=== PATIENT | male | born 1975 | race Caucasian/White ===

== ENCOUNTER 2017-06-22 13:21 | Emergency (ER) | payer SELFPAY ==
[2017-06-22] MEDS ORDERED: CLINDAMYCIN HCL 150 MG CAPSULE PO ONE (13:50)
[2017-06-22] MEDS ORDERED: OXYCODONE-ACETAMINOPHEN 5-325 MG TABLET PO ONE ×2 (13:50→15:59)
--- NOTE | 2017-06-22 14:18 | RADIOLOGY REPORT (SQ) ---
EXAM DESCRIPTION: HAND LEFT 3 VIEWS COMPLETED DATE/TIME: 06/22/2017 2:07 pm REASON FOR STUDY: injury to 3rd and 4th finger COMPARISON: None. EXAM PARAMETERS: NUMBER OF VIEWS: Three views. TECHNIQUE: AP, lateral and oblique radiographic images acquired of the left hand. LIMITATIONS: None. FINDINGS: MINERALIZATION: Normal. BONES: No acute fracture or dislocation. No worrisome bone lesions. JOINTS: No effusions. SOFT TISSUES: No soft tissue swelling. No foreign body. OTHER: No other significant finding. IMPRESSION: NEGATIVE STUDY OF THE LEFT HAND. NO RADIOGRAPHIC EVIDENCE OF ACUTE INJURY. TECHNICAL DOCUMENTATION: JOB ID: [id number] [employer]- All Rights Reserved
[2017-06-22] MEDS ORDERED: LIDOCAINE 1% INJ-PF (10 MG/ML) 30 ML SDV INJ ONE (15:01)
--- NOTE | 2017-06-22 15:01 | ER Document Report ---
ED Hand/Wrist Injury - General Chief Complaint: Laceration Stated Complaint: FINGER INJURY Time Seen by Provider: 06/22/17 13:39 Mode of Arrival: Ambulatory Information source: Patient Notes: 3-year-old male presents to ED for injury to bilateral hands. 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 Has a small cut to the right index finger and lacerations to the third and fourth left digits. states she tried to get him to come to the emergency room last night and he refused. States his tetanus shot was last 2 years ago. TRAVEL OUTSIDE OF THE [place] 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 Lives with: Family Family History: DM, Hyperlipidemia, Hypertension, Malignancy - Past Medical History Cardiac Medical History: Reports: Hx Hypercholesterolemia, Hx Hypertension Pulmonary Medical History: Reports: None EENT Medical History: Reports: None Neurological Medical History: Reports: None Endocrine Medical History: Reports: Hx Diabetes Mellitus Type 2 - diet controlled Renal/ Medical History: Reports: None Malignancy Medical History: Reports None GI Medical History: Reports: None Musculoskeltal Medical History: Reports Hx Arthritis, Reports Hx Musculoskeletal Deformity, Reports Hx Musculoskeletal Trauma Skin Medical History: Reports None Psychiatric Medical History: Reports: None Traumatic Medical History: Reports: Hx Fractures - Elbow Infectious Medical History: Reports: None Past Surgical History: Reports: Hx Orthopedic Surgery - back bulging disc rods and screws - Immunizations Immunizations up to date: Yes Hx Diphtheria, Pertussis, Tetanus Vaccination: Yes Hx Pneumococcal Vaccination: 02/27/13 Review of Systems - Review of Systems Constitutional: No symptoms reported EENT: No symptoms reported Cardiovascular: No symptoms reported Respiratory: No symptoms reported Gastrointestinal: No symptoms reported Genitourinary: No symptoms reported Male Genitourinary: No symptoms reported Musculoskeletal: Other - Bruising and tenderness to the third and fourth finger on the left hand, and unable to completely straighten the third and fourth finger on the left hand. Skin: Other - Flap lacerations to the third and fourth finger on the left hand Hematologic/Lymphatic: No symptoms reported Neurological/Psychological: No symptoms reported Physical Exam - Vital signs Vitals: Temp Pulse Resp BP Pulse Ox 98.2 F 82 20 126/70 H 95 06/22/17 13:28 06/22/17 13:28 06/22/17 13:28 06/22/17 13:28 06/22/17 13:28 Interpretation: Normal - General General appearance: Appears well, Alert - HEENT Head: Normocephalic, Atraumatic Eyes: Normal Pupils: PERRL - Respiratory Respiratory status: No respiratory distress Chest status: Nontender Breath sounds: Normal Chest palpation: Normal - Cardiovascular Rhythm: Regular Heart sounds: Normal auscultation Murmur: No - Abdominal Inspection: Normal Distension: No distension Bowel sounds: Normal Tenderness: Nontender Organomegaly: No organomegaly - Back Back: Normal, Nontender - Extremities General upper extremity: Normal temperature General lower extremity: Normal inspection, Nontender, Normal color, Normal ROM , Normal temperature, Normal weight bearing. No: Paddy's sign Hand: Tender, Ecchymosis - Third and fourth finger to the left hand, Laceration - Flap lacerations to the dorsal pip joint of the 3rd and 4th finger left hand. Patient unable to fully extend third and fourth finger., No evidence of human bite, No evidence of FB - Neurological Neuro grossly intact: Yes Cognition: Normal Orientation: AAOx4 Pearl Coma Scale Eye Opening: Spontaneous Pearl Coma Scale Verbal: Oriented Pearl Coma Scale Motor: Obeys Commands Kilbourne Coma Scale Total: 15 Speech: Normal Motor strength normal: LUE, RUE, LLE, RLE Sensory: Normal - Psychological Associated symptoms: Normal affect, Normal mood - Skin Skin Temperature: Warm Skin Moisture: Dry Skin Color: Normal Course - Re-evaluation Re-evalutation: 06/22/17 21:17 Digital block with 1% lidocaine to the third and fourth finger after cleaning well with surgical scrub. Both finger's laceration scrubbed with surgical scrub and irrigated with 500 cc total of normal saline. Patient discharged home with instructions to follow-up with orthopedic by telephone tomorrow to schedule a follow-up appointment patient also started on clindamycin for both his dental pain and his lacerations to his fourth finger. Both fingers were splinted due to inability to fully extend these 2 fingers. - Vital Signs Vital signs: Temp Pulse Resp BP Pulse Ox 98.6 F 57 L 16 132/71 H 97 06/22/17 16:12 06/22/17 16:12 06/22/17 16:12 06/22/17 16:12 06/22/17 16:12 - Diagnostic Test Radiology reviewed: Image reviewed, Reports reviewed Procedures - Immobilization Left Finger 3rd digit Immobilizer type: Finger splint (Static) Performed by: RN Post-Proc Neuro Vasc Exam: Normal Alignment checked and good: Yes Left Finger 4th digit Immobilizer type: Finger splint (Static) Performed by: RN Post-Proc Neuro Vasc Exam: Normal Alignment checked and good: Yes Discharge - Discharge Clinical Impression: Pain due to dental caries, Laceration left third finger, Laceration left fourth finger, Possible tendon damage left third finger, Possible tendon damage left fourth finge Disposition: HOME, SELF-CARE Additional Instructions: Hand Laceration A laceration on the hand can present special problems. It may be difficult to keep the wound dry. Motion of the fingers can disturb the healing edges. Your work may involve exposure to damaging chemicals or water. Keep the wound clean and dry. If you can't keep the cut dry, undisturbed, and free of chemical exposure, please discuss this with the doctor. If any water or chemical gets onto the dressing, remove it, blot the wound dry, then apply a fresh bandage. Dressings should be changed every day. If you feel the stitches pulling as you move the hand, a splint or other form of protection is needed. If any signs of infection occur (swelling, redness, increasing tenderness, red streaks, tender lumps in the armpit, or fever), see the doctor immediately. Crush Injury Your injury caused a crushing of the tissues. Crush injuries can include skin damage, bleeding within the tissues (hematoma), and muscle injury. Sometimes the crushing damages a nerve or artery. This usually heals without surgery. If there's a break in the skin with the crushing, it's more prone to infection and takes longer to heal than other cuts. Crush injuries may take a long time to heal. In severe cases, there may be actual of tissues -- for example, the skin may turn black and become a "scab." Crush injuries vary in the amount of pain they cause, and in the length of time required for healing. Typically, the area will become bruised, and will remain painful to touch for two or three weeks. However, most patients are back to working and playing within a few days. After the initial period of rest, elevation, and cold-packs, your symptoms (together with the doctor's recommendations) will determine how rapidly you can get back to full activity. Usually this means "do what feels okay, but don't do things that hurt." If re-examination was recommended, it's important to follow up as instructed. Call the doctor or return any time if pain increases, if swelling becomes severe, if you develop numbness or weakness in an injured extremity, or if any other alarming symptoms occur. TOOTHACHE: Your pain is due to dental decay. The tooth must be repaired in order for you to feel better. You will, therefore, be referred to a dentist. We do not have dentists on the staff at [facility]. Severe swelling or drainage around a tooth usually means a dental abscess. This also requires evaluation and treatment by the dentist, but antibiotics may be prescribed while awaiting dental treatment. You should be rechecked immediately if you develop major swelling of the face, increasing pain, a lump in the jaw or gums, headache, difficulty swallowing, or fever. CLINDAMYCIN: You have been given a prescription for the antibiotic clindamycin. It is often prescribed for infections in the mouth, such as dental infections or abscesses, and for skin infections due to MRSA. It's important that you take all the medication, unless instructed otherwise by your physician. Failure to complete the entire course can result in relapse of your condition. Common side effects of antibiotics include nausea, intestinal cramping, or diarrhea. Women may develop vaginal yeast infections, and babies can get yeast (thrush) in the mouth following the use of antibiotics. Contact your physician if you develop significant side effects from this medication. Allergy to this antibiotic can result in hives, wheezing, faintness, or itching. If symptoms of allergy occur, stop the medication and call the doctor. SOAP CLEANSING: Gently wash the wound daily using a mild soap (like Ivory, Phisoderm, Neutrogena). Use warm water, rubbing gently until all debris, ooze, and crusting have been washed from the wound. Allow to dry briefly (about 10 minutes) after cleaning. Repeat this cleansing at least three times a day for the first two days and then once or twice a day. ANTIBIOTIC OINTMENT PROTECTION: Your wounds are such that dressing them is not practical or optional. After cleansing, you should apply a thin coating of antibiotic ointment ( Bacitracin, not Neosporin) to the wounds at least three times daily. This lessens infection risk, and may decrease the amount of scarring. Use a q-tip or dull butter knife, not your finger, to apply this ointment. Any debris or ooze which builds up in the ointment should be gently rubbed off with a sterile gauze pad. Harder crusting may need to be gently scrubbed off with a clean wash cloth with soap and warm water, perhaps applying a warm, wet wash cloth to the wound for ten minutes first. Development of redness, severe itching, or blistering may mean allergy to the ointment. See the doctor. PROPHYLACTIC ANTIBIOTIC: The antibiotics which have been prescribed are designed to decrease the risk of infection. Only certain types of wounds benefit from this -- the typical cut, scrape, or burn DOES NOT require antibiotics. Of course, infection can still occur despite the use of prophylactic antibiotics. Your wound will heal with less chance of an infectious complication if you take the medication as directed. The most important dose is the FIRST dose, so don't delay filling the prescription! ORAL NARCOTIC MEDICATION: You have been given a prescription for pain control. This medication is a narcotic. It's best taken with food, as nausea can result if taken on an empty stomach. Don't operate machinery or drive within six hours of taking this medication. Do not combine this medicine with alcohol, or with any medication which can cause sedation (such as cold tablets or sleeping pills) unless you get permission from the physician. Narcotics tend to cause constipation. If possible, drink plenty of fluids and eat a diet high in fiber and fruits. Call orthopedics first thing in the morning to schedule follow-up visit for possible tendon damage to your third and fourth finger on the left hand which is your dominant hand. It is very important that you follow up with the orthopedic surgeon to protect your hand. If you are not going to get in to see the orthopedic surgeon and the next couple days follow-up either with the primary doctor or the emergency room to check the wounds on your second and third finger in the next 48 hours FOLLOW-UP CARE: Please return in __2_ days for an infection check and dressing change. If you have been referred to another physician for follow-up care, call that physicians office for an appointment as you were instructed. If you experience a significant change in your laceration, or if you are concerned there may be an infection (swelling, redness, drainage, increasing tenderness, red streaks, tender lumps in the armpit or groin above the laceration, or fever) , return to the Emergency Department immediately re-evaluation. FOLLOW-UP CARE: You have been referred for follow-up care to the dentists listed below. Call the dentists office for an appointment as you were instructed or within the next two days. If you experience worsening or a significant change in your symptoms, notify the physician immediately or return to the Emergency Department at any time for re-evaluation. [facility] [address] [place], [place] Friday mornings, by appointment [facility] [address] [place] [address] [facility] [address] [facility] [address] [facility] [address] [email or web address] [address] [place] [address] Friday- 8:00am to 5:00 pm Will see patients from other [facility]. 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 [address] Hours of Operation 8:00 am - 4:30 pm weekdays The following dental offices accept Medicaid: [facility] Dr. Pulido Dr. Regalado Dr. Boles Dr. Alarcon Amren Ram, Dominick, and Coco oral surgery Dr. Blackmon ([place]) Dr. Garnett ([place]) [facility] Drs. Knight and Raghav ([place]) Dr. Knight ([place]) [facility] Dr. Park ([place]) Drs. Zhang and ([place]) Medicaid Care Line Prescriptions: Clindamycin HCl 300 mg PO Q6HP PRN #40 capsule PRN Reason: Oxycodone HCl/Acetaminophen [Percocet 5-325 mg Tablet] 1 - 2 tab PO ASDIR PRN # 15 tablet PRN Reason: Forms: Elevated Blood Pressure, Smoking Cessation Education Referrals: DANICA ROSS FNP [Primary Care Provider] - Follow up as needed JUAN HUNT DO [ACTIVE STAFF] - Follow up tomorrow
[2017-06-22] MEDS ORDERED: LIDOCAINE 2% VISCOUS SOLN 20 ML UDCUP PO ONE (15:44)
[2017-06-22 16:33] VITALS: BP 132/71
== END 2017-06-22 16:12 | disposition home or self-care (01) ==
LOC: ER 13:21
PROC: 3E0T3BZ Introduction of Anesthetic Agent into Peripheral Nerves and Plexi, Percutaneous Approach (ICD-10-PCS; principal; 2017-06-22)
DX: S61.213A Laceration without foreign body of left middle finger without damage to nail, initial encounter (principal); S61.215A Laceration without foreign body of left ring finger without damage to nail, initial encounter; S61.210A Laceration without foreign body of right index finger without damage to nail, initial encounter; W23.0XXA Caught, crushed, jammed, or pinched between moving objects, initial encounter; Y93.89 Activity, other specified; Y99.0 Civilian activity done for income or pay; K02.9 Dental caries, unspecified; E11.9 Type 2 diabetes mellitus without complications; I10 Essential (primary) hypertension; F17.210 Nicotine dependence, cigarettes, uncomplicated; Z71.6 Tobacco abuse counseling
CPT/HCPCS: 99283; 73130; 64450; J3490

== ENCOUNTER 2017-12-18 10:28 | Emergency (ER) | payer OTHER, BC ==
[2017-12-18 10:32] VITALS: BP 147/95
--- NOTE | 2017-12-18 11:29 | RADIOLOGY REPORT (SQ) ---
EXAM DESCRIPTION: KNEE LEFT 4 VIEW COMPLETED DATE/TIME: 12/18/2017 11:20 am REASON FOR STUDY: twist injury, pain and swelling COMPARISON: 12/10/2012 NUMBER OF VIEWS: Four views. TECHNIQUE: AP, lateral, and both oblique radiographic images acquired of the left knee. LIMITATIONS: None. FINDINGS: MINERALIZATION: Normal. BONES: No acute fracture or dislocation. No worrisome bone lesions. JOINT: No effusion. SOFT TISSUES: No soft tissue swelling. No radio-opaque foreign body. OTHER: No other significant finding. IMPRESSION: NEGATIVE STUDY OF THE LEFT KNEE. NO RADIOGRAPHIC EVIDENCE OF ACUTE INJURY. TECHNICAL DOCUMENTATION: JOB ID: [id number] [employer]- All Rights Reserved
--- NOTE | 2017-12-18 12:38 | ER Document Report ---
HPI - HPI Patient complains to provider of: Left knee pain Onset: Other - 2 weeks ago Onset/Duration: Persistent Quality of pain: Achy Pain Level: 5 Context: Patient states that he was stepping down twisted his knee 2 weeks ago. Patient complains of continued left knee pain since then. Patient denies any fever. Associated Symptoms: Other - Left knee pain Exacerbated by: Standing, Movement, Walking Relieved by: Denies Similar symptoms previously: No Recently seen / treated by doctor: No - ROS ROS below otherwise negative: Yes Systems Reviewed and Negative: Yes All other systems reviewed and negative - CONSTITUTIONAL Constitutional: DENIES: Fever - MUSCULOSKELETAL Musculoskeletal: REPORTS: Extremity pain - DERM Skin Color: Normal Skin Problems: None Past Medical History - General Information source: Patient - Social History Smoking Status: Current Every Day Smoker Chew tobacco use (# tins/day): No Smoking Education Provided: Yes Frequency of alcohol use: None Drug Abuse: None 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 Family History: DM, Hyperlipidemia, Hypertension, Malignancy Patient has suicidal ideation: No Patient has homicidal ideation: No - Past Medical History Cardiac Medical History: Reports: Hx Hypercholesterolemia, Hx Hypertension Endocrine Medical History: Reports: Hx Diabetes Mellitus Type 2 - diet controlled Renal/ Medical History: Denies: Hx Peritoneal Dialysis Musculoskeltal Medical History: Reports Hx Arthritis, Reports Hx Musculoskeletal Deformity, Reports Hx Musculoskeletal Trauma Traumatic Medical History: Reports: Hx Fractures - Elbow Past Surgical History: Reports: Hx Orthopedic Surgery - back bulging disc rods and screws - Immunizations Immunizations up to date: Yes Hx Diphtheria, Pertussis, Tetanus Vaccination: Yes Hx Pneumococcal Vaccination: 02/27/13 Vertical Provider Document - CONSTITUTIONAL Agree With Documented VS: Yes Exam Limitations: No Limitations General Appearance: WD/WN, No Apparent Distress - INFECTION CONTROL TRAVEL OUTSIDE OF THE [place] IN LAST 30 DAYS: No - NECK Neck: Normal Inspection - RESPIRATORY Respiratory: No Respiratory Distress O2 Sat by Pulse Oximetry: 96 - CARDIOVASCULAR Pulses: Normal: Dorsalis pedis - BACK Back: Normal Inspection - MUSCULOSKELETAL/EXTREMETIES Musculoskeletal/Extremeties: MAEW, Tender - Patient with left knee joints to inferior compartment along patellar tendon, patellar tendon intact. No obvious effusion. Normal skin color and temperature overlying joint. Tenderness increases with flexion of knee. No valgus or varus laxity, No Edema - NEURO Level of Consciousness: Awake, Alert, Appropriate Motor/Sensory: No Motor Deficit - DERM Integumentary: Warm, Dry, No Rash Course - Re-evaluation Re-evalutation: 12/18/17 12:37 Review of patient's prescription profile demonstrates that patient is on multiple narcotic medications as well as Valium and tramadol. Patient initially denied taking any medication although did acknowledge that he is on these pain medications once confronted with this information. 12/18/17 12:37 Normal skin color and temperature overlying joint. Patient does report a history of twisting injury. Will treat for left knee sprain with recommended follow-up with orthopedic surgeon. - Vital Signs Vital signs: Temp Pulse Resp BP Pulse Ox 97.8 F 76 18 147/95 H 96 12/18/17 10:31 12/18/17 10:31 12/18/17 10:31 12/18/17 10:31 12/18/17 10:31 Procedures - Immobilization Left Knee Pre-Proc Neuro Vasc Exam: Normal Immobilizer type: Knee immobilizer Performed by: PCT Post-Proc Neuro Vasc Exam: Normal Alignment checked and good: Yes Discharge - Discharge Clinical Impression: Elevated blood pressure reading Left knee sprain Qualifiers: Encounter type: initial encounter Involved ligament of knee: unspecified ligament Qualified Code(s): S83.92XA - Sprain of unspecified site of left knee, initial encounter Condition: Stable Disposition: HOME, SELF-CARE Instructions: Use of Crutches ([facility]), Ice & Elevation ([facility]), Knee Immobilizing Splint ([facility]), Sprained Knee ([facility]) Additional Instructions: Return immediately for any new or worsening symptoms Followup with your primary care provider, call tomorrow to make a followup appointment Take your pain medication that you have at home as prescribed Forms: Elevated Blood Pressure, Smoking Cessation Education, Return to Work Referrals: DANICA ROSS FNP [Primary Care Provider] - Follow up as needed [facility] [Provider Group] - Follow up tomorrow
== END 2017-12-18 12:46 | disposition home or self-care (01) ==
LOC: ER 10:28
DX: S83.92XA Sprain of unspecified site of left knee, initial encounter (principal); M25.562 Pain in left knee; X50.0XXA Overexertion from strenuous movement or load, initial encounter; Y99.0 Civilian activity done for income or pay; I10 Essential (primary) hypertension; E11.9 Type 2 diabetes mellitus without complications; F17.200 Nicotine dependence, unspecified, uncomplicated; Z79.891 Long term (current) use of opiate analgesic; Z79.899 Other long term (current) drug therapy
CPT/HCPCS: 99283; 73562; L1830

== ENCOUNTER 2018-06-08 19:32 | Emergency (ER) | payer SELFPAY ==
[2018-06-08] MEDS ORDERED: HYDROMORPHONE HCL INJ/PF 2 MG/ML AMPULE IV ONE (19:53)
--- NOTE | 2018-06-08 20:00 | ER Document Report ---
ED General - General Stated Complaint: CHEST PAIN Time Seen by Provider: 06/08/18 19:39 Mode of Arrival: Medic Information source: Patient, Emergency Med Personnel, [facility] Records Notes: 43-year-old male with hypertension, hyperlipidemia, type 2 diabetes, tobacco use , previous history of TIA presents with complaint of left-sided chest pain that started 45 minutes prior to arrival. Patient states that he was driving in the car with his sister when he had a sudden onset of sharp stabbing chest pain that radiated up into his right shoulder. Patient had associated nausea, vomiting and lightheadedness. He denies prior similar symptoms, chest injury. Patient states the pain is worse with movement and outpatient. He denies any overuse. Patient does have a history of chronic back pain and is on morphine daily. TRAVEL OUTSIDE OF THE [place] IN LAST 30 DAYS: No - HPI Onset: Just prior to arrival Onset/Duration: Sudden Quality of pain: Sharp, Stabbing Severity: Moderate Pain Level: 2 Associated symptoms: Nausea, Vomiting, Shortness of breath Exacerbated by: Sitting, Movement Relieved by: Denies Similar symptoms previously: No Recently seen / treated by doctor: No - Related Data Allergies/Adverse Reactions: No Known Allergies Allergy (Verified 12/18/17 10:30) Past Medical History - General Information source: Patient, [facility] Records - Social History Smoking Status: Current Every Day Smoker Cigarette use (# per day): Yes - 15 Smoking Education Provided: Yes - Patient counseled on smoking cessation for 4 minutes Frequency of alcohol use: Occasional Drug Abuse: Prescription drugs - Patient on chronic morphine and Percocet. Lives with: Family Family History: DM, Hyperlipidemia, Hypertension, Malignancy - Past Medical History Cardiac Medical History: Reports: Hx Hypercholesterolemia, Hx Hypertension Endocrine Medical History: Reports: Hx Diabetes Mellitus Type 2 - diet controlled Renal/ Medical History: Denies: Hx Peritoneal Dialysis Musculoskeletal Medical History: Reports Hx Arthritis, Reports Hx Musculoskeletal Deformity, Reports Hx Musculoskeletal Trauma Traumatic Medical History: Reports: Hx Fractures - Elbow Past Surgical History: Reports: Hx Orthopedic Surgery - back bulging disc rods and screws - Immunizations Immunizations up to date: Yes Hx Diphtheria, Pertussis, Tetanus Vaccination: Yes Hx Pneumococcal Vaccination: 02/27/13 Review of Systems - Review of Systems Notes: REVIEW OF SYSTEMS: CONSTITUTIONAL : Denies fever, chills, or sweats. Denies recent illness. Denies weight loss, recent hospitalizations. EENT: Denies visual changes, eye pain. Denies nasal or sinus congestion or discharge. Denies sore throat, oral lesions, difficulty swallowing. CARDIOVASCULAR: Denies palpitations. Denies lower extremity edema. RESPIRATORY: Denies cough, cold, or chest congestion. Denies shortness of breath, wheezing. GASTROINTESTINAL: Denies abdominal pain or distention. Denies diarrhea. Denies blood in vomitus, stools, or per rectum. Denies black, tarry stools. Denies constipation. GENITOURINARY: Denies difficulty urinating, painful urination, frequency, blood in urine, or vaginal discharge. MUSCULOSKELETAL: Denies back or neck pain or stiffness. Denies joint pain or swelling. SKIN: Denies rash, lesions or sores. HEMATOLOGIC : Denies easy bruising or bleeding. LYMPHATIC: Denies swollen glands. NEUROLOGICAL: Denies confusion or altered mental status. Denies passing out or loss of consciousness. Denies headache. Denies weakness or paralysis. Denies problems difficulty with ambulation, slurred speech. Denies sensory loss , numbness, or tingling. Denies seizures. PSYCHIATRIC: Denies anxiety or stress. Denies depression, suicidal ideation, or homicidal ideation. Denies visual or auditory hallucinations. Physical Exam - Vital signs Vitals: Temp Pulse Resp BP Pulse Ox 99 F 81 20 121/75 92 06/08/18 19:39 06/08/18 19:39 06/08/18 19:39 06/08/18 19:39 06/08/18 19:39 Interpretation: No: Hypotensive, Tachypneic, Febrile, Other - Notes Notes: PHYSICAL EXAMINATION: GENERAL: Well-appearing, well-nourished and in no acute distress. HEAD: Atraumatic, normocephalic. EYES: Pupils equal round and reactive to light, extraocular movements intact, sclera anicteric, conjunctiva are normal. ENT: Nares patent, oropharynx clear without exudates. Moist mucous membranes. NECK: Normal range of motion, supple without lymphadenopathy LUNGS: Breath sounds clear to auscultation bilaterally and equal. No wheezes rales or rhonchi. HEART: Regular rate and rhythm without murmurs. Reproducible chest wall tenderness with palpation over the left anterior chest. ABDOMEN: Soft, nontender, nondistended abdomen. No guarding, no rebound. No masses appreciated. Musculoskeletal: Normal range of motion, no pitting or edema. No cyanosis. NEUROLOGICAL: Cranial nerves grossly intact. Normal speech, normal gait. Normal sensory, motor exams PSYCH: Normal mood, normal affect. SKIN: Warm, Dry, normal turgor, no rashes or lesions noted. Course - Re-evaluation Re-evalutation: 06/09/18 00:51 Laboratory 06/08/18 06/08/18 06/08/18 20:00 20:00 20:00 WBC 9.2 RBC 5.57 H Hgb 16.7 Hct 48.0 MCV 86 MCH 30.0 MCHC 34.8 RDW 13.6 Plt Count 256 Seg Neutrophils % 63.7 Lymphocytes % 21.9 Monocytes % 6.8 Eosinophils % 6.5 H Basophils % 1.1 Absolute Neutrophils 5.9 Absolute Lymphocytes 2.0 Absolute Monocytes 0.6 Absolute Eosinophils 0.6 Absolute Basophils 0.1 Sodium 142.6 Potassium 4.4 Chloride 100 Carbon Dioxide 32 H Anion Gap 11 BUN 19 Creatinine 0.81 Est GFR ( Amer) > 60 Est GFR (Non-Af Amer) > 60 Glucose 92 Calcium 9.8 Total Bilirubin 0.9 Direct Bilirubin 0.3 Neonat Total Bilirubin Not Reportable Neonat Direct Bilirubin Not Reportable Neonat Indirect Bili Not Reportable AST 20 ALT 24 Alkaline Phosphatase 59 Creatine Kinase 77 CK-MB (CK-2) 1.10 Troponin I < 0.012 Total Protein 7.0 Albumin 4.2 06/08/18 23:30 WBC RBC Hgb Hct MCV MCH MCHC RDW Plt Count Seg Neutrophils % Lymphocytes % Monocytes % Eosinophils % Basophils % Absolute Neutrophils Absolute Lymphocytes Absolute Monocytes Absolute Eosinophils Absolute Basophils Sodium Potassium Chloride Carbon Dioxide Anion Gap BUN Creatinine Est GFR ( Amer) Est GFR (Non-Af Amer) Glucose Calcium Total Bilirubin Direct Bilirubin Neonat Total Bilirubin Neonat Direct Bilirubin Neonat Indirect Bili AST ALT Alkaline Phosphatase Creatine Kinase CK-MB (CK-2) Troponin I < 0.012 Total Protein Albumin Chest X-Ray 06/08/18 19:39 IMPRESSION: NO ACUTE RADIOGRAPHIC FINDING IN THE CHEST. 06/09/18 01:39 43-year-old male with hypertension, hyperlipidemia, type 2 diabetes, tobacco use , previous history of TIA presents with complaint of left-sided chest pain that started 45 minutes prior to arrival. Patient states that he was driving in the car with his sister when he had a sudden onset of sharp stabbing chest pain that radiated up into his right shoulder. Patient had associated nausea, vomiting and lightheadedness. He denies prior similar symptoms, chest injury. Patient states the pain is worse with movement and outpatient. He denies any overuse. Patient does have a history of chronic back pain and is on morphine daily. Patient was seen by myself upon arrival. Vital signs were reviewed. Patient is afebrile, normotensive and not hypoxic. Patient does not appear toxic or dehydrated. They are in no acute distress. Previous medical records and nursing notes reviewed. Significant findings include producible chest pain with sitting up and with palpation. Patient received Dilaudid and morphine during his ED course. CBC is without leukocytosis or anemia. CMP shows no electrolyte abnormalities and normal renal function. Cardiac workup was within normal limits. Troponin and delta troponin within normal limits. EKG shows normal sinus rhythm. 06/09/18 01:39 06/09/18 01:41 - Vital Signs Vital signs: Temp Pulse Resp BP Pulse Ox 99 F 81 20 121/75 92 06/08/18 19:39 06/08/18 19:39 06/08/18 19:39 06/08/18 19:39 06/08/18 19:39 - Laboratory Result Diagrams: 06/08/18 20:00 06/08/18 20:00 Laboratory results interpreted by me: 06/08/18 06/08/18 20:00 20:00 RBC 5.57 H Eosinophils % 6.5 H Carbon Dioxide 32 H - Diagnostic Test Radiology reviewed: Image reviewed, Reports reviewed - EKG Interpretation by [place] EKG shows normal: Sinus rhythm Rate: Normal Rhythm: NSR When compared to previous EKG there are: Other - Repeat EKG within normal limits Discharge - Discharge Clinical Impression: Tobacco abuse, History of hypertension Chest pain Qualifiers: Chest pain type: unspecified Qualified Code(s): R07.9 - Chest pain, unspecified Diabetes Qualifiers: Diabetes mellitus type: 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 Follow up with your physician tomorrow for further care or return to the ED IMMEDIATELY if symptoms worsen or new concerns occur. If you cannot afford to follow up with your primary care physician a list of low cost clinics have been provided at the end of your discharge papers as well. Prescriptions: Ibuprofen [Motrin 600 Mg Tablet] 600 mg PO TID #15 tablet Forms: Smoking Cessation Education, Parent Work Note Referrals: DANICA ROSS FNP [Primary Care Provider] - Follow up as needed
[2018-06-08 20:17] LABS: ABSOLUTE BASOPHILS # (AUTO) 0.1 10^3/uL (0.0-0.2); ABSOLUTE EOSINOPHILS # (AUTO) 0.6 10^3/uL (0.0-0.6); ABSOLUTE MONOCYTES (AUTO) 0.6 10^3/uL (0.1-1.4); ABSOLUTE NEUT (AUTO) 5.9 10^3/uL (1.7-8.2); BASOPHILS % (AUTO) 1.1 % (0-2); EOSINOPHILS % (AUTO) 6.5 % (0-6); HEMOGLOBIN 16.7 g/dL (13.5-17.0); LYMPHOCYTES % (AUTO) 21.9 % (13-45); MEAN CORPUSCULAR HGB CONC 34.8 g/dL (32.0-36.0); MEAN CORPUSCULAR VOLUME 86 fl (80-97); MONOCYTES % (AUTO) 6.8 % (3-13); PLATELET COUNT 256 10^3/uL (150-450); RED BLOOD COUNT 5.57 10^6/uL (4.35-5.55); RED CELL DISTRIBUTION WIDTH 13.6 % (11.5-14.0); SEGMENTED NEUTROPHILS % (AUTO) 63.7 % (42-78); TOTAL CELLS COUNTED % (AUTO) 100 %; WHITE BLOOD COUNT 9.2 10^3/uL (4.0-10.5)
[2018-06-08 20:28] LABS: ALANINE AMINOTRANSFERASE 24 U/L (21-72); ALBUMIN 4.2 g/dL (3.5-5.0); ALKALINE PHOSPHATASE 59 U/L (38-126); ANION GAP 11 (5-19); ASPARTATE AMINO TRANSFERASE 20 U/L (17-59); BILIRUBIN,DIRECT 0.3 mg/dL (0.0-0.4); BILIRUBIN,TOTAL 0.9 mg/dL (0.2-1.3); BLOOD UREA NITROGEN 19 mg/dL (7-20); CALCIUM 9.8 mg/dL (8.4-10.2); CARBON DIOXIDE 32 mmol/L (22-30); CHLORIDE 100 mmol/L (98-107); CREATINE KINASE 77 U/L (55-170); GLUCOSE 92 mg/dL (75-110); POTASSIUM 4.4 mmol/L (3.6-5.0); SODIUM 142.6 mmol/L (137-145)
--- NOTE | 2018-06-08 20:28 | RADIOLOGY REPORT (SQ) ---
EXAM DESCRIPTION: CHEST SINGLE VIEW COMPLETED DATE/TIME: 06/08/2018 8:10 pm REASON FOR STUDY: cp COMPARISON: 02/26/2013 EXAM PARAMETERS: NUMBER OF VIEWS: One view. TECHNIQUE: Single frontal radiographic view of the chest acquired. RADIATION DOSE: NA LIMITATIONS: None. FINDINGS: LUNGS AND PLEURA: No opacities, masses or pneumothorax. No pleural effusion. MEDIASTINUM AND HILAR STRUCTURES: No masses. Contour normal. HEART AND VASCULAR STRUCTURES: Heart normal in size. Normal vasculature. BONES: No acute findings. HARDWARE: None in the chest. OTHER: No other significant finding. IMPRESSION: NO ACUTE RADIOGRAPHIC FINDING IN THE CHEST. TECHNICAL DOCUMENTATION: JOB ID: [id number] [employer]- All Rights Reserved Reading location - IP/workstation name: [email or web address]
[2018-06-08 20:42] LABS: TROPONIN I < 0.012 ng/mL
--- NOTE | 2018-06-08 21:35 | EKG REPORT ---
SEVERITY:- NORMAL ECG - SINUS RHYTHM ST ELEV, PROBABLE NORMAL EARLY REPOL PATTERN : Confirmed by: Bharathi Grimes 08-Jun-2018 21:34:14
[2018-06-08] MEDS ORDERED: MORPHINE SULFATE 10 MG/ML INJ IV ONE (22:55)
[2018-06-09] MEDS ORDERED: MORPHINE SULFATE 10 MG/ML INJ IV ONE (00:51)
[2018-06-09 01:39] VITALS: BP 116/82
== END 2018-06-09 01:20 | disposition home or self-care (01) ==
LOC: ER 19:32
DX: R07.9 Chest pain, unspecified (principal); I10 Essential (primary) hypertension; E11.9 Type 2 diabetes mellitus without complications; R11.2 Nausea with vomiting, unspecified; R42 Dizziness and giddiness; M54.9 Dorsalgia, unspecified; G89.29 Other chronic pain; Z79.891 Long term (current) use of opiate analgesic; Z86.73 Personal history of transient ischemic attack (TIA), and cerebral infarction without residual deficits; R06.02 Shortness of breath; F17.210 Nicotine dependence, cigarettes, uncomplicated; Z71.6 Tobacco abuse counseling
CPT/HCPCS: 93005; 96376; 99285; 96374; 96375; 36415; 82553; 82550; 85025; 80053; 84484; 71045; 93010; J2270 ×2; J1170

== ENCOUNTER 2019-02-05 21:19 | Emergency (ER) | payer SELFPAY ==
--- NOTE | 2019-02-06 00:17 | ER Document Report ---
ED Medical Screen (RME) - General Chief Complaint: Back Injury Stated Complaint: ARM AND LEGS GOING NUMB,BACK PAIN Time Seen by Provider: 02/06/19 00:13 Primary Care Provider: DANICA ROSS FNP [Primary Care Provider] - Follow up as needed Notes: 44-year-old male, who reports he fell off of a 16 foot ladder, landed on his back/neck. This was afternoon, he states he started getting numbness in his hands and legs night, this continued and then worsened during Friday and today. He states now he is slapping his hands and he cannot feel them, he still has use of his hands however. He denies bowel incontinence or inability to urinate. He denies headache. He is sore over his left ribs. Denies any past medical history. TRAVEL OUTSIDE OF THE [place] IN LAST 30 DAYS: No - Related Data Allergies/Adverse Reactions: No Known Allergies Allergy (Verified 12/18/17 10:30) Past Medical History - Past Medical History Cardiac Medical History: Reports: Hx Hypercholesterolemia, Hx Hypertension Endocrine Medical History: Reports: Hx Diabetes Mellitus Type 2 - diet controlled Renal/ Medical History: Denies: Hx Peritoneal Dialysis Musculoskeltal Medical History: Reports Hx Arthritis, Reports Hx Musculoskeletal Deformity, Reports Hx Musculoskeletal Trauma Traumatic Medical History: Reports: Hx Fractures - Elbow Past Surgical History: Reports: Hx Orthopedic Surgery - back bulging disc rods and screws - Immunizations Immunizations up to date: Yes Hx Diphtheria, Pertussis, Tetanus Vaccination: Yes Physical Exam - Vital signs Vitals: Temp Pulse Resp BP Pulse Ox 98.5 F 62 16 153/74 H 99 02/05/19 22:07 02/05/19 22:07 02/05/19 22:07 02/05/19 22:07 02/05/19 22:07 - Back Back: Other - Scars over the lumbar area consistent with lumbar fusion history. 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 Upgraded to level 2. CT imaging pending. I have greeted and performed a rapid initial assessment of this patient. A comprehensive ED assessment and evaluation of the patient, analysis of test results and completion of the medical decision making process will be conducted by additional ED providers. - Vital Signs Vital signs: Temp Pulse Resp BP Pulse Ox 98.5 F 62 16 153/74 H 99 02/05/19 22:07 02/05/19 22:07 02/05/19 22:07 02/05/19 22:07 02/05/19 22:07 Doctor's Discharge - Discharge Referrals: DANICA ROSS FNP [Primary Care Provider] - Follow up as needed
[2019-02-06] MEDS ORDERED: HYDROMORPHONE HCL INJ/PF 2 MG/ML AMPULE IM ONE (00:37)
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
--- NOTE | 2019-02-06 01:17 | RADIOLOGY REPORT (SQ) ---
EXAM DESCRIPTION: CT THORACIC SPINE WITHOUT IV CONTRAST, CT LUMBAR SPINE WITHOUT IV CONTRAST COMPLETED DATE/TME: 02/06/2019 00:13 CLINICAL HISTORY: 44 years Male, fell of ladder, hands numb Comparison: None. Technique: No contrast. Coronal and sagittal reformat. This exam was performed according to our departmental dose-optimization program, which includes automated exposure control, adjustment of the mA and/or kV according to patient size and/or use of iterative reconstruction technique.[facility]: Dose Right [facility]: CareDose [facility]: Dose Right [facility]: Teradose 4D [facility]: [email or web address] LIMITATIONS: None Findings: L5-S1: Mild to moderate bilateral L5 foraminal stenosis due to a small residual components of a disc bulge-osteophyte complex. Mild bilateral foraminal stenosis of the mid and lower thoracic spine. Else, no significant thecal sac or nerve root compression throughout the thoracolumbar spine. 0.3 cm L5 anterolisthesis. Mild posterior L5 vertebral height loss. Mild/moderate disc desiccation of the mid and lower thoracic spine lower lumbar spine. Posterior L4-S1 hardware fusion. Calcification at the L4-L5 disc. Atherosclerosis. Visualized sacroiliac joints, posterior neck, posterior mediastinum, retroperitoneum, and soft tissues of the lower back appear otherwise unremarkable. IMPRESSION: No acute findings of the thoracic or lumbar spine. Mild/moderate bilateral L5 foraminal stenosis. Posterior L4-S1 hardware fusion.
--- NOTE | 2019-02-06 01:35 | RADIOLOGY REPORT (SQ) ---
EXAM DESCRIPTION: XR RIBS LEFT WITH CHEST COMPLETED DATE/TME: 02/06/2019 00:15 CLINICAL HISTORY: 44 years, Male, fall, left rib pain COMPARISON: None. NUMBER OF VIEWS: TECHNIQUE: LIMITATIONS: None. FINDINGS: No evidence of acute left-sided rib fracture. There is a possible old fracture of the left 11th rib. No evidence of pneumothorax or pleural effusion. No evidence of pulmonary infiltrate. The heart and mediastinum are unremarkable. Pulmonary vascularity appears normal. IMPRESSION: No evidence of acute rib fracture. copyright 2010 [employer]- All Rights Reserved
[2019-02-06] MEDS ORDERED: NICOTINE 21 MG/24 HR PATCH.TD24 TD ONE (02:00)
[2019-02-06 02:19] LABS: ANION GAP 8 (5-19); BLOOD UREA NITROGEN 15 mg/dL (7-20); CALCIUM 9.7 mg/dL (8.4-10.2); CARBON DIOXIDE 24 mmol/L (22-30); CHLORIDE 108 mmol/L (98-107); GLUCOSE 111 mg/dL (75-110); POTASSIUM 3.9 mmol/L (3.6-5.0); SODIUM 140.4 mmol/L (137-145)
[2019-02-06] MEDS ORDERED: FENTANYL CITRATE INJ/PF 100 MCG/2 ML AMPUL IV ONE (02:41)
[2019-02-06 03:05] VITALS: BP 114/61
== END 2019-02-06 03:20 | disposition short-term general hospital (02) ==
LOC: ER 21:19
DX: S19.9XXA Unspecified injury of neck, initial encounter (principal); M54.2 Cervicalgia; M54.9 Dorsalgia, unspecified; R20.0 Anesthesia of skin; R53.1 Weakness; M79.605 Pain in left leg; M79.604 Pain in right leg; W11.XXXA Fall on and from ladder, initial encounter; F17.200 Nicotine dependence, unspecified, uncomplicated; I10 Essential (primary) hypertension; E11.9 Type 2 diabetes mellitus without complications; Z98.1 Arthrodesis status
CPT/HCPCS: 99285; 96372; 96374; 36415; 80048; 71101; 72125; 72128; 72131; L0172; J3010; J1170

== ENCOUNTER 2019-06-04 18:31 | Emergency (ER) | payer SELFPAY ==
[2019-06-04] MEDS ORDERED: DIAZEPAM INJ 10 MG/2 ML DISP.SYRIN IV ONE (22:23)
[2019-06-04] MEDS ORDERED: MORPHINE SULFATE 10 MG/ML INJ IV ONE (22:23)
--- NOTE | 2019-06-04 22:26 | ER Document Report ---
ED Medical Screen (RME) - General Chief Complaint: Neck and Upper Back Pain Stated Complaint: NECK,HEAD,BACK PAIN Time Seen by Provider: 06/04/19 22:10 TRAVEL OUTSIDE OF THE [place] IN LAST 30 DAYS: No - HPI Notes: 06/04/19 22:23 44-year-old male to the emergency department with complaints of acute on chronic right-sided neck pain that began 2 days ago. He states that 3 months ago he fell off a ladder and sustained some serious neck injuries. He was seen here and transferred to [facility] where he establish care with Dr. Mcgill, neurosurgery. He states that he is supposed to have a cervical fusion on June 11. He has been predominantly tolerating his pain while on Robaxin and gabapentin. However in the past 2 days he has had significantly increased pain. He denies any injuries. He states that he has numbness and tingling in his arms but that does not seem to have gotten worse. He does state that he seems to have swelling to the right side of his neck radiates into his head and gives him a severe headache. He denies any fevers, chills, chest pain, shortness of breath, nausea, vomiting, diarrhea. He states that initially he thought that he had slept wrong on his neck but he got worried when the neck pain did not get better. He uses both a soft collar and a c-collar and arrives today in the emergency department and collar. He states that this makes his neck feel more supported and helps to control the pain. I performed a medical screening exam on this patient. I have ordered labs and medicines. We will have colleague on the main side of the ER manage the patient further. He does not appear to have any weakness to his upper extremity. He has 5 out of 5 strength in his flexion extension of the upper extremity. He has 5 out of 5 handgrip bilaterally. Inspection of the neck briefly illustrates very exquisite tenderness along the collarbone and up the right side of the neck. No eric induration or evidence of infection. - Related Data Allergies/Adverse Reactions: No Known Allergies Allergy (Verified 12/18/17 10:30) Past Medical History - Social History Frequency of alcohol use: None Drug Abuse: None - Past Medical History Cardiac Medical History: Reports: Hx Hypercholesterolemia, Hx Hypertension Endocrine Medical History: Reports: Hx Diabetes Mellitus Type 2 - diet controlled Renal/ Medical History: Denies: Hx Peritoneal Dialysis Musculoskeltal Medical History: Reports Hx Arthritis, Reports Hx Musculoskeletal Deformity, Reports Hx Musculoskeletal Trauma Traumatic Medical History: Reports: Hx Fractures - Elbow Past Surgical History: Reports: Hx Orthopedic Surgery - back bulging disc rods and screws - Immunizations Immunizations up to date: Yes Hx Diphtheria, Pertussis, Tetanus Vaccination: Yes Physical Exam - Vital signs Vitals: Temp Pulse Resp BP Pulse Ox 98.6 F 70 16 158/79 H 97 06/04/19 18:38 06/04/19 18:38 06/04/19 18:38 06/04/19 18:38 06/04/19 18:38 Course - Vital Signs Vital signs: Temp Pulse Resp BP Pulse Ox 98.6 F 70 16 158/79 H 97 06/04/19 18:38 06/04/19 18:38 06/04/19 18:38 06/04/19 18:38 06/04/19 18:38
[2019-06-04 23:03] LABS: ABSOLUTE BASOPHILS # (AUTO) 0.1 10^3/uL (0.0-0.2); ABSOLUTE EOSINOPHILS # (AUTO) 0.6 10^3/uL (0.0-0.6); ABSOLUTE LYMPHOCYTES (AUTO) 2.8 10^3/uL (0.5-4.7); ABSOLUTE MONOCYTES (AUTO) 0.4 10^3/uL (0.1-1.4); ABSOLUTE NEUT (AUTO) 7.4 10^3/uL (1.7-8.2); BASOPHILS % (AUTO) 0.9 % (0-2); EOSINOPHILS % (AUTO) 5.5 % (0-6); HEMATOCRIT 48.2 % (37.9-51.0); HEMOGLOBIN 16.1 g/dL (13.5-17.0); LYMPHOCYTES % (AUTO) 24.3 % (13-45); MEAN CORPUSCULAR HEMOGLOBIN 29.5 pg (27.0-33.4); MEAN CORPUSCULAR HGB CONC 33.4 g/dL (32.0-36.0); MEAN CORPUSCULAR VOLUME 88 fl (80-97); MONOCYTES % (AUTO) 3.7 % (3-13); PLATELET COUNT 304 10^3/uL (150-450); RED BLOOD COUNT 5.46 10^6/uL (4.35-5.55); RED CELL DISTRIBUTION WIDTH 13.9 % (11.5-14.0); SEGMENTED NEUTROPHILS % (AUTO) 65.6 % (42-78); TOTAL CELLS COUNTED % (AUTO) 100 %; WHITE BLOOD COUNT 11.3 10^3/uL (4.0-10.5)
[2019-06-04 23:32] LABS: ALANINE AMINOTRANSFERASE 14 U/L (21-72); ALBUMIN 4.5 g/dL (3.5-5.0); ALKALINE PHOSPHATASE 49 U/L (38-126); ANION GAP 7 (5-19); ASPARTATE AMINO TRANSFERASE 15 U/L (17-59); BILIRUBIN,DIRECT 0.3 mg/dL (0.0-0.4); BILIRUBIN,TOTAL 0.3 mg/dL (0.2-1.3); BLOOD UREA NITROGEN 10 mg/dL (7-20); CALCIUM 9.7 mg/dL (8.4-10.2); CARBON DIOXIDE 29 mmol/L (22-30); CHLORIDE 105 mmol/L (98-107); GLUCOSE 76 mg/dL (75-110); POTASSIUM 4.6 mmol/L (3.6-5.0); TOTAL PROTEIN 7.2 g/dL (6.3-8.2)
[2019-06-05] MEDS ORDERED: METHOCARBAMOL 750 MG TABLET PO ONE (00:27)
[2019-06-05] MEDS ORDERED: HYDROCODONE/ACETAMINOPHEN 5-325 MG (6 TAB/ER DISP) PO PRN (00:27)
--- NOTE | 2019-06-05 03:04 | ER Document Report ---
Entered by PARISA TORRES SCRIBE 06/05/19 0011 Acting as scribe for:FLY FOWLER DO ED Neck/Back Problem - General Chief Complaint: Neck and Upper Back Pain Stated Complaint: NECK,HEAD,BACK PAIN Time Seen by Provider: 06/04/19 22:10 Mode of Arrival: Ambulatory Information source: Patient Notes: 44 year old male that presents to the emergency department today with complaints of acute on chronic neck pain. Patient states that x3 months ago he fell off a ladder and was transferred to [facility]. Patient states he now has surgery scheduled at [facility] on June 11. Patient states that his surgery is going to be a cervical fusion for "missing disc, arthritis, and a bunch of other things". Patient states he woke up 2 days ago with right sided neck pain and swelling which has remained constant since onset. Patient states he cannot turn his head secondary to pain. Patient states the worst pain happens when he tries to turn his head to the left which causes pain on the right side of his neck. Patient states that his surgeon told him he did not have to wear a c-collar if he was "sitting around doing nothing but if he was up moving around he should wear it" and that wearing it has slightly decreased his pain. Patient complains of some throat discomfort which he attributes to wearing the neck brace. Patient denies any new injury, weakness, or difficulty swallowing. Patient states he has some numbness and tingling to his upper extremities which is unchanged from baseline. Patient states he has a history of diabetes and takes metformin, stating his romero gars usually run in the 120s. TRAVEL OUTSIDE OF THE [place] IN LAST 30 DAYS: No - Related Data Allergies/Adverse Reactions: No Known Allergies Allergy (Verified 12/18/17 10:30) Past Medical History - General Information source: Patient - Social History Smoking Status: Current Every Day Smoker Cigarette use (# per day): Yes Chew tobacco use (# tins/day): No Frequency of alcohol use: None Drug Abuse: None Lives with: Family Family History: Reviewed & Not Pertinent, DM, Hyperlipidemia, Hypertension, Malignancy Patient has suicidal ideation: No Patient has homicidal ideation: No - Past Medical History Cardiac Medical History: Reports: Hx Hypercholesterolemia, Hx Hypertension Endocrine Medical History: Reports: Hx Diabetes Mellitus Type 2 - metformin Musculoskeletal Medical History: Reports Hx Arthritis, Reports Hx Musculoskelet al Deformity, Reports Hx Musculoskeletal Trauma Traumatic Medical History: Reports: Hx Fractures - Elbow Past Surgical History: Reports: Hx Orthopedic Surgery - back bulging disc rods and screws - Immunizations Immunizations up to date: Yes Hx Diphtheria, Pertussis, Tetanus Vaccination: Yes Hx Pneumococcal Vaccination: 02/27/13 Review of Systems - Review of Systems Constitutional: No symptoms reported EENT: Other - throat discomfort from neck brace. denies: Difficulty swallowing Cardiovascular: No symptoms reported Respiratory: No symptoms reported Gastrointestinal: No symptoms reported Genitourinary: No symptoms reported Male Genitourinary: No symptoms reported Musculoskeletal: See HPI, Muscle pain, Muscle stiffness, Neck pain Skin: No symptoms reported Hematologic/Lymphatic: No symptoms reported Neurological/Psychological: See HPI, Headaches, Numbness, Tingling. denies: Weakness -: Yes All other systems reviewed and negative Physical Exam - Vital signs Vitals: Temp Pulse Resp BP Pulse Ox 98.6 F 70 16 158/79 H 97 06/04/19 18:38 06/04/19 18:38 06/04/19 18:38 06/04/19 18:38 06/04/19 18:38 Interpretation: Hypertensive - Notes Notes: PHYSICAL EXAM GENERAL: Alert, interacts well. No acute distress. HEAD: Normocephalic, atraumatic. EYES: Pupils equal, round, and reactive to light. Extraocular movements intact. ENT: Oral mucosa moist, tongue midline. No posterior oropharynx erythema or exudate. NECK: Wearing cervical collar, removed for exam. No midline bony tenderness with palpation. Right sided sternocleidomastoid musculature tenderness palpation. Right-sided tenderness to palpation over the cervical portion of the trapezius. Limited flexion with slightly more ability to extend the neck both limited by pain. Able to rotate to approximately 30 degrees to the left and 40 degrees to the right, both limited by pain. Trachea midline. No neck swelling. LUNGS: Clear to auscultation bilaterally, no wheezes, rales, or rhonchi. No re spiratory distress. HEART: Regular rate and rhythm. No murmurs, gallops, or rubs. EXTREMITIES: Moves all 4 extremities spontaneously. No edema, radial and dorsalis pedis pulses 2/4 bilaterally. No cyanosis. NEUROLOGICAL: Alert and oriented x3. Normal speech. Biceps DTRs 2+ bilaterally. 5 out of 5 muscle strength in the bilateral upper extremities. PSYCH: Normal affect, normal mood. SKIN: Warm, dry, normal turgor. No rashes or lesions noted. Course - Re-evaluation Re-evalutation: 06/05/19 00:29 CBC shows mild leukocytosis of 11.3, CMP grossly unremarkable, patient has no new numbness, tingling, weakness. No new neurologic symptoms. Symptoms are completely reproducible on palpation of the cervical portion of the right tr apezius muscle as well as the sternocleidomastoid muscle. Examination is consistent with muscle spasm/torticollis. No new injury. Patient will be instructed on increase in muscle relaxer dosing. Currently taking Robaxin 500 mg 3 times daily, should be taking 1500 mg 3 times daily. Patient had partial relief of his symptoms with Valium 5 mg IV as well as morphine 5 mg IV. Patient will be given dispense pack of [place] for home pain control. No indication for imaging at this time given the fact that this is all muscular. - Vital Signs Vital signs: Temp Pulse Resp BP Pulse Ox 98.6 F 70 16 158/79 H 97 06/04/19 18:38 06/04/19 18:38 06/04/19 18:38 06/04/19 18:38 06/04/19 18:38 - Laboratory Result Diagrams: 06/04/19 22:47 06/04/19 22:47 Laboratory results interpreted by me: 06/04/19 06/04/19 22:47 22:47 WBC 11.3 H AST 15 L ALT 14 L Discharge - Discharge Clinical Impression: Torticollis, acquired, Sternocleidomastoid muscle tenderness, Trapezius muscle spasm Condition: Stable Disposition: HOME, SELF-CARE Additional Instructions: Please take your Robaxin 1500 mg every 8 hours as needed for pain and muscle spasm. The [place] that I have also given you you may take 1 tablet every 4-6 hours as needed for pain. You may also take ibuprofen 800 mg every 8 hours as needed for pain. Return to the emergency department for fever, difficulty swallowing, weakness in your arms or increasing numbness. Prescriptions: Methocarbamol [Robaxin 750 mg Tablet] 1,500 mg PO TIDP PRN #20 tablet PRN Reason: I personally performed the services described in the documentation, reviewed and edited the documentation which was dictated to the scribe in my presence, and it accurately records my words and actions.
[2019-06-05 07:44] VITALS: BP 159/81
== END 2019-06-05 01:00 | disposition home or self-care (01) ==
LOC: ER 18:31
DX: M43.6 Torticollis (principal); M62.830 Muscle spasm of back; M54.6 Pain in thoracic spine; M54.2 Cervicalgia; G89.29 Other chronic pain; F17.210 Nicotine dependence, cigarettes, uncomplicated; I10 Essential (primary) hypertension; E11.9 Type 2 diabetes mellitus without complications
CPT/HCPCS: 99283; 96374; 96375; 36415; 85025; 80053; J3360; J3490; J2270